=== PATIENT | female | born 1945 | race Caucasian/White ===

== ENCOUNTER 2024-04-20 18:31 | Emergency (ER) | payer BC, OTHER ==
--- NOTE | 2024-04-20 18:54 | EDPHYS ---
Physician Documentation [facility] Name: Brianna Powers Age: 78 yrs Sex: Female : 1945 Arrival Date: 04/20/2024 Time: 18:31 Bed IW1 Private MD: ED Physician Isaac Stauffer HPI: 04/20 18:55 This 78 yrs old Female presents to ER via Ambulatory with complaints of Insect Bite. sb4 18:56 the patient presents with a swollen area of the dorsal aspect of left forearm. sb4 Description: The affected area is small, erythematous, warm. Onset: The symptoms/episode began/occurred 2 day(s) ago. Possible cause(s): bee sting, fire ant bite, insect sting, spider bite, wasp sting. Associated signs and symptoms: The patient has no apparent associated signs or symptoms. Modifying factors: the symptoms are alleviated by nothing, the symptoms are aggravated by nothing. Severity of symptoms: At their worst the symptoms were mild. The patient has not experienced similar symptoms in the past. The patient has been recently seen at an urgent care, yesterday, for similar complaints, was given a prescription for antibiotics. Historical: - Allergies: 18:48 Sulfa (Sulfonamide Antibiotics); dd2 - PMHx: 18:48 Dementia; dd2 18:53 Diabetes mellitus; dd2 - Immunization history:: Adult Immunizations unknown. - Infectious Disease History:: Denies. - Social history:: Smoking status: Patient denies any tobacco usage or history of. ROS: 18:56 Constitutional: Negative for fever, chills, and weight loss, sb4 18:56 Skin: Positive for swelling, of the dorsal aspect of left forearm, 18:56 All other systems are negative, Exam: 18:56 Constitutional: This is a well developed, well nourished patient who is awake, alert, sb4 and in no acute distress. Head/Face: Normocephalic, atraumatic. Eyes: Extra-ocular motions intact. Periorbital areas with no swelling, redness, or edema. ENT: Mucous membranes moist. 18:56 Skin: 2 bullous lesions with mild surrounding cellulitis, left forearm. Vital Signs: 18:45 BP 154 / 76; Pulse 84; Resp 16; Temp 98.1; Pulse Ox 98% ; dd2 MDM: 18:35 Patient medically screened. sb4 18:56 Data reviewed: vital signs, nurses notes, and as a result, I will discharge patient. sb4 Counseling: I had a detailed discussion with the patient and/or guardian regarding the historical points, exam findings, and any diagnostic results supporting the discharge/admit diagnosis, to return to the emergency department if symptoms worsen or persist or if there are any questions or concerns that arise at home. Administered Medications: 18:57 Drug: Clindamycin PO 300 mg PO once Route: PO; ko1 19:02 Follow up: Response: Medication administered at discharge. dd2 Disposition Summary: 04/20/24 18:53 Discharge Ordered Notes: Location: Home sb4 Problem: new sb4 Symptoms: have improved sb4 Condition: Stable sb4 Diagnosis - Cellulitis of left upper limb sb4 - Insect bite (nonvenomous) of forearm sb4 Followup: sb4 - With: Emergency Department - When: As needed - Reason: Fever > 102 F, Worsening of condition Discharge Instructions: - Discharge Summary Sheet sb4 - Insect Bite, Adult, [id number] sb4 - Cellulitis, Adult sb4 Forms: - Antibiotic Education sb4 - Patient Portal Instructions sb4 - Leadership Thank You Letter sb4 Prescriptions: - Clindamycin HCl 300 mg Oral Capsule - take 1 capsule ORAL route every 6 hours for 10 days; 40 capsule; Refills: 0, sb4 Product Selection Permitted Addendum: 04/24/2024 16:08 I was immediately available for consultation during this patient's visit. I did not e c2 personally see the patient or discuss the patient with the [facility]MAN[facility]. . Signatures: Juana Trejo, RN RN ko1 Yodit Jacinto PA-C PAAve sb4 Isaac Stauffer MD MD ec2 MCKINLEY HOYT RN RN dd2
--- NOTE | 2024-04-20 18:54 | ER ---
Nurse's Notes [facility] Name: Brianna Powers Age: 78 yrs Sex: Female : 1945 Arrival Date: 04/20/2024 Time: 18:31 Bed IW1 Private MD: Diagnosis: Cellulitis of left upper limb;Insect bite (nonvenomous) of forearm Presentation: 04/20 18:45 Chief complaint: Patient states: Pt states she was bitten by an insect x2 nights ago. dd2 She went to Urgent care yesterday and was given an antibiotic but the redness and swelling is worsening. Coronavirus screen: At this time, the client does not indicate any symptoms associated with coronavirus-19. Ebola Screen: No symptoms or risks identified at this time. Initial Sepsis Screen: Does the patient meet any 2 criteria? No. Patient's initial sepsis screen is negative. Does the patient have a suspected source of infection? No. Patient's initial sepsis screen is negative. Risk Assessment: Do you want to hurt yourself or someone else? Patient reports no desire to harm self or others. Onset of symptoms was April 19, 2024. 18:45 Method Of Arrival: Ambulatory dd2 18:45 Acuity: ASH 5 dd2 Triage Assessment: 18:48 Bite description: bite sustained to dorsal aspect of left forearm by an unknown animal, dd2 animal information: vaccination(s) is not applicable. General: Appears in no apparent distress. Behavior is calm, cooperative. Pain: Complains of pain in dorsal aspect of left forearm. Historical: - Allergies: 18:48 Sulfa (Sulfonamide Antibiotics); dd2 - PMHx: 18:48 Dementia; dd2 18:53 Diabetes mellitus; dd2 - Immunization history:: Adult Immunizations unknown. - Infectious Disease History:: Denies. - Social history:: Smoking status: Patient denies any tobacco usage or history of. Screenin:53 [facility] ED Fall Risk Assessment (Adult) History of falling in the last 3 months, dd2 including since admission No falls in past 3 months (0 pts) Confusion or Disorientation Yes (5 pts) Intoxicated or Sedated No (0 pts) Impaired Gait No (0 pts) Mobility Assist Device Used No (0 pt) Altered Elimination No (0 pt) Score/Fall Risk Level 3 or more points = High Risk Oriented to surroundings, Maintained a safe environment, Hourly rounding (assess needs \T\ fall precautionary measures) done. Abuse screen: Denies threats or abuse. Nutritional screening: No deficits noted. Tuberculosis screening: No symptoms or risk factors identified. Assessment: 18:53 Neuro: Oriented to person, place, situation. Cardiovascular: No deficits noted. dd2 Respiratory: No deficits noted. GI: No deficits noted. : No deficits noted. EENT: No deficits noted. Derm: Skin has blisters on Lt forearm Skin is red. Musculoskeletal: No deficits noted. Vital Signs: 18:45 BP 154 / 76; Pulse 84; Resp 16; Temp 98.1; Pulse Ox 98% ; dd2 ED Course: 18:33 Patient arrived in ED. im 18:33 Yodit Jacinto [facility]-C [facility]. sb4 18:33 Isaac Stauffer MD is Attending Physician. sb4 18:48 Triage completed. dd2 18:48 Arm band placed on right wrist. Patient placed in waiting room, in view of staff dd2 members, Patient notified of wait time. 18:53 Patient has correct armband on for positive identification. Provided Education on: dd2 medications. 18:53 No provider procedures requiring assistance completed. IV discontinued. dd2 Administered Medications: 18:57 Drug: Clindamycin PO 300 mg PO once Route: PO; ko1 19:02 Follow up: Response: Medication administered at discharge. dd2 Medication: 18:53 VIS not applicable for this client. dd2 Outcome: 18:53 Discharge ordered by MD. sb4 18:59 Discharged to home ambulatory, dd2 18:59 Condition: stable 18:59 Discharge instructions given to patient, family, Instructed on discharge instructions, follow up and referral plans. medication usage, Demonstrated understanding of instructions, follow-up care, medications, Prescriptions given X 1, 19:01 Patient left the ED. dd2 Signatures: Juana Trejo, RN RN ko1 Yodit Jacinto PA-C PA-C sb4 Hilaria Guillermo DIANA RN RN dd2
[2024-04-20 19:27] VITALS: BP 154/76; TEMP 98.1; O2SAT 98
== END 2024-04-20 19:01 | disposition home or self-care (01) ==
LOC: ER 18:31
DX: L03.114 Cellulitis of left upper limb (principal); S50.862A Insect bite (nonvenomous) of left forearm, initial encounter; E11.9 Type 2 diabetes mellitus without complications; F03.90 Unspecified dementia, unspecified severity, without behavioral disturbance, psychotic disturbance, mood disturbance, and anxiety; Z88.2 Allergy status to sulfonamides
CPT/HCPCS: 99283